=== PATIENT | male | born 1995 | race Caucasian/White ===

== ENCOUNTER 2024-09-18 22:12 | Emergency (ER) | payer MEDICAID, SELFPAY ==
[2024-09-18 22:22] VITALS: BP 117/72; PULSE 94; RESP 18; TEMP 36.9; O2SAT 95; BMI 30.7
--- NOTE | 2024-09-18 23:20 | ED.WOUNDLAC ---
HPI - Wound/Laceration General Date Seen: 09/18/24 Chief Complaint: Laceration/Wound Stated Complaint: Stitches on knee opened back up Time Seen by Provider: 09/18/24 23:07 Source: patient Mode of arrival: ambulatory Limitations: no limitations History of Present Illness HPI narrative: Patient is a 29-year-old male presenting because a laceration to his left knee opened up. He states 7 days ago he had a cyst removed at the dermatology office and was closed with stitches. He was told yesterday to take the stitches out himself which he did. States today he moved his knee to quickly and caused the surgical site open up. No other issues noted. Bleeding is under controlled. Related Data Allergies Allergy/AdvReac Type Severity Reaction Status Date / Time No Known Drug Allergies Allergy Verified 09/18/24 22:27 Review of Systems Narrative: Pertinent systems reviewed and were negative unless stated in HPI Exam Narrative: Exam Narrative: Const: Well-nourished, Well-developed, in no distress Eyes: PERRL, no conjunctival injection, and symmetrical lids HENT: Atraumatic external nose and ears. Moist mucous membranes. MSK:Extremities w/o deformity, Normal Active ROM Skin: Warm, Dry. 1 cm open procedure site Neuro: Normal Muscle tone, No focal neurological deficits. Psych: Awake, Alert, & Oriented x3. Appropriate mood and affect. Const: Vital Signs, click to edit/add: Vital Signs - 24 hr 09/18/24 22:22 Temperature 98.5 F Pulse Rate [Right Pulse Oximeter] 94 Respiratory Rate 18 Blood Pressure [Ri ght Upper Arm] 117/72 Pulse Oximetry 95 Oxygen Delivery Me thod Room Air Course Vital Signs Vital signs: Initial Vital Signs Temperature 98.5 F 09/18/24 22:22 Temperature Source Temporal Artery Scan 09/18/24 22:22 Pulse Rate 94 09/18/24 22:22 Pulse Rhythm Regular 09/18/24 22:22 Respiratory Rate 18 09/18/24 22:22 Blood Pressure 117/72 09/18/24 22:22 Blood Pressure Mean 87 09/18/24 22:22 Blood Pressure Position Sitting 09/18/24 22:22 Pulse Oximetry 95 09/18/24 22:22 Oxygen Delivery Method Room Air 09/18/24 22:22 Vital Signs Temperature 98.5 F 09/18/24 22:22 Pulse Rate 94 09/18/24 22:22 Respiratory Rate 18 09/18/24 22:22 Blood Pressure 117/72 09/18/24 22:22 Pulse Oximetry 95 09/18/24 22:22 Oxygen Delivery Method Room Air 09/18/24 22:22 Temperature 98.5 F 09/18/24 22:22 Pulse Rate 94 09/18/24 22:22 Respiratory Rate 18 09/18/24 22:22 Blood Pressure 117/72 09/18/24 22:22 Pulse Oximetry 95 09/18/24 22:22 Oxygen Delivery Method Room Air 09/18/24 22:22 MDM - Wound/Laceration MDM Narrative Medical decision making narrative: Patient is a 29-year-old male presenting for procedure site dehiscence. He states he bent down to quickly causing the site open up. No associated pain. Considering this was 1st drawn over a week ago I believe we are breast off using Steri-Strips instead of closing it tight with sutures. He is agreeable to this plan. Steri-Strips placed then kerlix placed around to better hold the Steri-Strips in place. I informed him to follow up with his aviation electrical technician tomorrow. Antibiotics not seem necessary at this time as there are no signs of infection. Discharge Plan Discharge Clinical Impression: Dehiscence of wound Patient Disposition: Home, Self-Care Condition: Stable Additional Instructions: Keep the Steri-Strips on for at least 1 week. Trying keep bandages over the top to to keep them in place. Return to emergency department for new or worsening symptoms. Follow-up with your aviation electrical technician tomorrow to see if any further treatment needs to be done. Follow Up/Referrals: Provider,Not a Local [Primary Care Provider] - Stand Alone Forms: [facility] Info Instructions
== END 2024-09-18 23:41 | disposition home or self-care (01) ==
PROVIDERS: Emergency Provider Student in an Organized Health Care Education/Training Program
DX: T81.89XA Other complications of procedures, not elsewhere classified, initial encounter (principal)
CPT/HCPCS: 99282